=== PATIENT | male | born 2000 | race Caucasian/White ===

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

== ENCOUNTER 2022-12-19 17:30 | Emergency (ER) | payer SELFPAY ==
[2022-12-19 17:34] VITALS: BP 125/72; PULSE 100; RESP 20; TEMP 36.6; O2SAT 100
== END 2022-12-19 18:33 | disposition left against medical advice (07) ==
LOC: ER 17:34
PROVIDERS: PCP Pediatrics
DX: Z53.21 Procedure and treatment not carried out due to patient leaving prior to being seen by health care provider (principal)

== ENCOUNTER 2023-01-04 02:03 | Emergency (ER) | payer OTHER, SELFPAY ==
[2023-01-04 02:06] VITALS: BP 106/64; PULSE 84; RESP 16; TEMP 37.3; O2SAT 96
[2023-01-04 04:09] LABS: Abs Immature Grans 0.08 10^3/uL (0.0-0.06); Absolute Basophil Count 0.14 10^3/uL (0.0-0.2); Absolute Eosinophil Count 0.19 10^3/uL (0.0-0.7); Absolute Lymphocyte Count 3.18 10^3/uL (1.2-3.4); Absolute Monocyte Count 0.72 10^3/uL (0.1-0.8); Absolute Neutrophil Count 5.46 10^3/uL (1.2-6.7); Basophils % 1.4; Eosinophils % 1.9; HCT 49.6 % (40.0-50.0); HGB 17.5 g/dL (13.5-17.5); Immature Grans % 0.8; Lymphocytes % 32.5; MCH 31.5 pg (27.0-33.0); MCHC 35.3 % (32.0-36.0); MCV 89 fL (80-95); MPV 9.1 fL (8.0-11.0); Monocytes % 7.4; Platelet Count 374 10^3/uL (130-400); RBC 5.55 10^6/uL (4.36-5.78); RDW 11.9 % (11.8-14.1); RDW-SD 38.8 fL; WBC 9.77 10^3/uL (4.4-10.8)
--- NOTE | 2023-01-04 04:16 | ED.GENADUL_ITS ---
Discharge Plan Discharge Details Chief Complaint: PsychEval Primary Care Provider: Paramjit Pfeiffer ED Provider: Alley Farnsworth Home Meds and New Rx's Prescriptions: No Action lisdexamfetamine [Vyvanse] 30 mg capsule 30 mg PO QAM MDD 30 mg Qty: 30 0RF Medical Decision Making 22yo M presents voluntarily with suicidal ideation. History from patient and parents at bedside. SI with plan to cut his wrists, has cut himself shallowly with a knife. No prior suicide attempts. Heavy drinking today, not a daily drinker, no hx of ETOH withdrawal. Vital signs reassuring on arrival, on exam he has shallow abrasions to his forearm. Affect flat, keeps eyes closed during exam, speech soft. Screening labs as below, CBC & CMP with no actionable abnormalities, serum ethanol 192. Will allow time to metabolize ETOH, plan for evaluation by MH when sober. May benefit from inpatient treatment vs outpatient services. Signed out to oncoming physician, disposition pending MH eval. Lab Data Lab results reviewed: Yes I reviewed the patient's lab results. Labs: Laboratory Tests Range/Units 01/04/23 03:48 WBC (4.4-10.8) 10^3/uL 9.77 RBC (4.36-5.78) 10^6/uL 5.55 Hgb (13.5-17.5) g/dL 17.5 Hct (40.0-50.0) % 49.6 MCV (80-95) fL 89 MCH (27.0-33.0) pg 31.5 MCHC (32.0-36.0) % 35.3 RDW (11.8-14.1) % 11.9 Plt Count (130-400) 10^3/uL 374 MPV (8.0-11.0) fL 9.1 Immature Gran % 0.8 Neutrophils % 56.0 Lymphocytes % 32.5 Monocytes % 7.4 Eosinophils % 1.9 Basophils % 1.4 Nucleated RBC % (0.0-0.3) % 0.0 Absolute Neutrophils (1.2-6.7) 10^3/uL 5.46 Absolute Lymphocytes (1.2-3.4) 10^3/uL 3.18 Absolute Monocytes (0.1-0.8) 10^3/uL 0.72 Absolute Eosinophils (0.0-0.7) 10^3/uL 0.19 Absolute Basophils (0.0-0.2) 10^3/uL 0.14 Sodium (136-145) mmol/L 139 Potassium (3.5-5.1) mmol/L 3.9 Chloride (98-107) mmol/L 105 Carbon Dioxide (21.0-32.0) mmol/L 26.8 Anion Gap (3-11) mmol/L 7.2 BUN (7-18) mg/dL 6 L Creatinine (0.70-1.30) mg/dL 1.1 Est GFR (CKD-EPI 2020) (mL/min/1.73m2) 97.95 Glucose (74-106) mg/dL 104 Calcium (8.5-10.1) mg/dL 9.2 Magnesium (1.8-2.4) mg/dL 2.3 Total Bilirubin (0.2-1.0) mg/dL 0.3 AST (15-37) U/L 50 H ALT (16-63) U/L 87 H Alkaline Phosphatase (46-116) U/L 64 Total Protein (6.4-8.2) g/dL 7.9 Albumin (3.4-5.0) g/dL 4.4 Urine Opiates Screen (Negative) Negative Urine Methadone Screen (Negative) Negative Ur Barbiturates Screen (Negative) Negative Ur Tricyclics Screen (Negative) Negative Ur Amphetamines Screen (Negative) Positive A U Benzodiazepines Scrn (Negative) Negative Urine Cocaine Screen (Negative) Negative Ur THC Screen (Negative) Negative Ethyl Alcohol (<10) mg/dL 191.9 H HPI General Mode of arrival: ambulatory . Date/Time Provider Initiated Documentation: 01/04/23 02:04 . Limitations to Documentation: no limitations . Information obtained by: patient and family . HPI Narrative: 22yo M presents with suicidal ideation. History from patient and parents at bedside. He has been having worsening thoughts of hurting himself over the past several weeks. Has thought about cutting his wrists. Has cut himself shallowly with a knife. No prior suicide attempts. Today drank heavily, feeling much worse in generally. Not a daily drinker, no history of alcohol withdrawal. No HI/AH/VH. No physical compliants. He is otherwise in his usual state of health. Related Data Home Medications Medication Instructions Recorded Confirmed lisdexamfetamine 30 mg capsule 30 mg PO QAM #30 caps 01/03/23 01/04/23 (Vyvanse) Previous Rx's Medication Instructions Recorded lisdexamfetamine 30 mg capsule 30 mg PO QAM #30 caps 01/03/23 (Vyvanse) Allergies Allergy/AdvReac Type Severity Reaction Status Date / Time No Known Allergies Allergy Verified 01/04/23 02:13 General Stated Complaint: PsychEval TORRES: 2 Review of Systems Narrative: see HPI PFSH All Active Problems (Updated 06/01/22 @ 06:34 by Paramjit Pfeiffer MD) Well adult on routine health check (Acute) Laceration (Acute) Medical History (Updated 06/01/22 @ 06:34 by Paramjit Pfeiffer MD) Asthma Vision problem WEARS CONTACTS Family History Mother Healthy adult Mental disorder DEPRESSION Father Healthy adult Other Diabetes MGF Alcohol abuse paternal/maternal sides Essential hypertension MGF, MGM Personal history of malignant neoplasm paternal side Heart disease PGF, PGM Hyperlipidemia MGF Hypothyroid MGM Mental disorder maternal/paternal sides with depression Stroke PGF Parkinson disease maternal side Social History Smoking/Tobacco Use Status: Current-Occasional Tobacco Type: e-cigarettes Smoking risk assessment performed?: Yes Alcohol Intake: current Alcohol Intake frequency: a few times a month Alcohol type: hard liquor Drug use: Occasionally Substance use type: marijuana Housing: apartment Do you feel safe at home: Yes Do you feel safe in your relationship?: Yes Exam Narrative Exam Narrative: General: Alert, well appearing Head: Normocephalic, atraumatic Neck: Trachea midline, Neck supple. Cardiac: No cyanosis. Resp: No respiratory distress. Speaking in full sentences. Abd: Non-distended Extremities: No deformities. No peripheral edema. Shallow abrasions to forearms Neurologic: GCS 15. Moves all extremities freely against gravity Psych: Calm, cooperative. Well groomed. Mood sad, affect flat. Keeps eyes closed during interview. Speech with soft and slow, flat. Linear. SI, plan to cut wrists. Denies HI/AH/VH. Does not appear to be responding to internal stimuli. Course Vital Signs Vital signs: Vital Signs Temperature 37.3 C 01/04/23 02:06 Pulse 84 01/04/23 02:06 Respiratory Rate 16 01/04/23 02:06 Blood Pressure 106/64 01/04/23 02:06 Pulse Oximetry 96 01/04/23 02:06 Temperature 37.3 C 01/04/23 02:06 Temperature Source Temporal Artery Scan 01/04/23 02:06 Pulse 84 01/04/23 02:06 Respiratory Rate 16 01/04/23 02:06 Respiratory Effort Normal, Non-Labored 01/04/23 02:10 Blood Pressure 106/64 01/04/23 02:06 Blood Pressure Position Sitting 01/04/23 02:06 Pulse Oximetry 96 01/04/23 02:06 Oxygen Delivery Method Room Air 01/04/23 02:06 Oxygen Flow Rate 0 01/04/23 02:06 Pain Level 0 01/04/23 02:06 PAWSS Have you Been Recently Intoxicated or Drunk Within the Last 30 days?: Yes Have you Ever Experienced Previous Episodes of Alcohol Withdrawal?: No Have you ever Experienced Withdrawal Seizures?: No Have you ever Experienced Delirium Tremens(DT)s?: No Have you ever undergone Alcohol Rehabilitation Treatment (i.e, inpt ot outpatient treatment programs)?: No Have you ever Experienced Blackouts?: Yes Have you ever Combined Alcohol with other Downers within the last 90 days?: No Have you ever Combined Alcohol with any other Substance of Abuse during the last 90 days?: No Positive Blood Alcohol level on Presentation? [PCS.BAL]: Yes Evidence of Increased Autonomic Activity (i.e. HR>120, tremor, sweating, agitation, nausea)?: No Result: 3
[2023-01-04 04:28] LABS: ALT 87 U/L (16-63); AST 50 U/L (15-37); Albumin 4.4 g/dL (3.4-5.0); Alkaline Phosphatase 64 U/L (46-116); Anion Gap 7.2 mmol/L (3-11); BUN 6 mg/dL (7-18); Bilirubin, Total 0.3 mg/dL (0.2-1.0); CO2 26.8 mmol/L (21.0-32.0); CREATININE 1.1 mg/dL (0.70-1.30); Calcium 9.2 mg/dL (8.5-10.1); Chloride 105 mmol/L (98-107); ETHANOL BLOOD 191.9 mg/dL (<10); Estimated GFR 97.95 (mL/min/1.73m2); Glucose 104 mg/dL (74-106); Magnesium 2.3 mg/dL (1.8-2.4); Potassium 3.9 mmol/L (3.5-5.1); Sodium 139 mmol/L (136-145); Total Protein 7.9 g/dL (6.4-8.2)
--- NOTE | 2023-01-04 04:49 | NUR.NOTE ---
Nursing Note: Pt lives at an apartment on his own, over the past few months he has been dealing with depression, feeling of hopelessness and SI. pt has hx of cutting his arms, superficial cuts to his left fore arm. Pt called his mother in the past with SI and stating he needs to get help. Currently he has not been able to get into see a psychologist or get therapy. The mother had stated that she had tried through her job but has been told that the pt needs to amke the call on his own. tonberenice he comes in after calling his mother after having large amount of ETOH and stated i need help currently the pt has no active SI, but states that he has in the past few weeks. Pt agreed for mental health evaluation. changed into paper scrubs 1:1 observer, parents currently with the pt. Labs and urine sample sent, pt has been updated on POC and time line
[2023-01-04 05:31] LABS: *AMPHETAMINES SCREEN URINE Positive (Negative); *BARBITURATES SCREEN URINE Negative (Negative); *BENZODIAZEPINES SCREEN URINE Negative (Negative); Cannabinoids THC Negative (Negative); Cocaine Screen,Urine Negative (Negative); METHADONE URINE SCREEN Negative (Negative); OPIATES URINE SCREEN Negative (Negative)
[2023-01-04 05:38] LABS: Tricyclic Antidepressants Negative (Negative)
[2023-01-04 08:10] VITALS: BP 106/57; PULSE 84; RESP 18; TEMP 36.5; O2SAT 96
--- NOTE | 2023-01-04 09:08 | W.EDPROG ---
Date of service: 01/04/23 Time of Service: 08:15 Medical Decision Making Patient signed out to me pending clearance from alcohol intoxication and mental health evaluation for suicidal ideations. Patient in room with parents resting well with patient safety observer in place. 0900-spoke with [facility] who evaluated patient and recommended safety plan due to patient being forward thinking, no outpatient current therapy. Patient was reassessed by myself and did state that he would prefer outpatient therapy and at this time does not want to be admitted. There is not enough to either patient nor do I feel this is necessary given that patient is calm cooperative and mother at bedside who is also agreeable and okay with plan and patient is reaching out for help. Patient was encouraged to return for any new or significant worsening of symptoms or if he does not feel that he can remain safe on an outpatient basis. Mother did bring up that patient does seem to have these episodes more when he is anxious. We did discuss some none medication options but I did give a limited prescription for hydroxyzine to see if this helps. After discussion of diagnosis and plan of care patient has no further needs, questions, or concerns and states clear understanding to return to the emergency department for any worsening symptoms. This documentation was generated using [employer] dictation system, please disregard any oddities of phrase or misspellings. Lab Data Lab results reviewed: Yes I reviewed the patient's lab results. Exam Const General: cooperative, no acute distress and not ill appearing Orientation: alert, awake and oriented x3 Resp Effort & Inspection: normal respiratory effort, able to speak in complete sentences and no respiratory distress Neuro General: patient alert, patient awake, patient oriented x3 and moves all extremities Sign Out Sign Out Data: Sign Out Comment: 22yo M, SI with plan to cut wrists, presents voluntarily, intoxicated. Pending sober re-eval, evaluation. Last updated by Alley Farnsworth MD at 01/04/23 07:13 Discharge Plan Disposition Patient Disposition: Home Discharge Details Clinical Impression: Laceration, Suicidal ideation, Alcohol intoxication, Anxiety and depression Primary Care Provider: Paramjit Pfeiffer ED Provider: Dann Samaniego Home Meds and New Rx's Prescriptions: New hydroxyzine HCl 25 mg tablet 25 mg PO TID PRN (Reason: anxiety) Qty: 15 0RF Continued lisdexamfetamine [Vyvanse] 30 mg capsule 30 mg PO QAM MDD 30 mg Qty: 30 0RF Discharge Instructions Instructions: Depression (ED), Help Prevent Suicide (ED) Additional Instructions: Please return immediately to the emergency department for any new or significant worsening of your symptoms. Otherwise follow-up as discussed for establishment of outpatient mental health services. Referrals: [facility] [Outside] (As discussed on your safety plan) Paramjit Pfeiffer MD [Primary Care Provider] - Discharge Data Discharge Date/Time-TO BE ENTERED AT DEPARTURE: 01/04/23 09:44
[2023-01-04 09:40] VITALS: BP 115/67; PULSE 76; RESP 18; TEMP 36.7; O2SAT 96
--- NOTE | 2023-01-06 14:24 | NUR.NOTE ---
accessed pt chart to obtain phone number for [facility]
== END 2023-01-04 09:44 | disposition home or self-care (01) ==
PROVIDERS: Student in an Organized Health Care Education/Training Program; Emergency Provider Nurse Practitioner Family; PCP Pediatrics
DX: F10.929 Alcohol use, unspecified with intoxication, unspecified (principal); F41.9 Anxiety disorder, unspecified; F32.A Depression, unspecified; R45.851 Suicidal ideations
CPT/HCPCS: 00123; 80053; 80307; 99285; 80320; 83735; 85025

== ENCOUNTER 2023-02-21 23:23 | Outpatient (REF) | payer OTHER, SELFPAY | END 2023-02-21 23:24 | disposition home or self-care (01) | LOC: LBN 23:23 | PROVIDERS: PCP Pediatrics; Visit Provider Physician Assistant Medical | DX: J02.9 Acute pharyngitis, unspecified (principal) | CPT/HCPCS: 87070 ==

== ENCOUNTER 2023-12-20 09:28 | Emergency (ER) | payer OTHER, SELFPAY ==
[2023-12-20 09:35] VITALS: BP 119/65; PULSE 91; RESP 18; TEMP 36.6; O2SAT 98
--- NOTE | 2023-12-20 10:00 | DI.RAD_ITS ---
Exam(s) XR WRIST LT COMPLETE EXAM: XR WRIST LT COMPLETE CLINICAL HISTORY: Injury. TECHNIQUE: 2D digital imaging was performed of the left wrist. Three images were obtained. PA, obl ique and lateral views were obtained. COMPARISON: No exams were available for comparison FINDINGS: BONES: No acute fracture is present. No bony destructive lesion is seen. JOINTS: The carpal bones are normally aligned. SOFT TISSUE: Normal. IMPRESSION: Unremarkable radiographs of the left wrist. DATA REPOSITORY: RADIATION DOSE DELIVERED:
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
--- NOTE | 2023-12-20 11:05 | DI.VRAD_ITS ---
PROCEDURE INFORMATION: Exam: XR Left Wrist Exam date and time: 12/20/2023 10:54 AM Age: 23 years old Clinical indication: Pain; Wrist; Left TECHNIQUE: Imaging protocol: Radiologic exam of the left wrist. Views: 3 or more views. COMPARISON: No relevant prior studies available. FINDINGS: Bones/joints: No acute fracture or dislocation. Joint spaces maintained. Soft tissues: Unremarkable. IMPRESSION: No acute findings. Dictated and Authenticated by: Wiliam Boyd MD. Ordering:MARIE Hutchinson MD
[2023-12-20] MEDS: Ibuprofen 800 MG TAB PO (11:09)
[2023-12-20] MEDS: Lidocaine 5% Patch 1 PATCH TP (11:09)
[2023-12-20] MEDS: LORazepam 0.5 MG TAB PO (13:27)
[2023-12-20 13:36] LABS: Bilirubin Negative (Negative); Blood Negative (Negative); Clarity Clear (Clear); Glucose Negative (Negative); Ketones Negative (Negative); Leukocyte Esterase Negative (Negative); Nitrite Negative (Negative); Specific Gravity 1.025 (1.005-1.025); Urobilinogen 0.2 mg/dL (Up to 0.2)
[2023-12-20 13:50] LABS: *AMPHETAMINES SCREEN URINE Negative (Negative); *BARBITURATES SCREEN URINE Negative (Negative); *BENZODIAZEPINES SCREEN URINE Negative (Negative); Cannabinoids THC Negative (Negative); Cocaine Screen,Urine Negative (Negative); METHADONE URINE SCREEN Negative (Negative); OPIATES URINE SCREEN Negative (Negative)
[2023-12-20 13:51] LABS: Tricyclic Antidepressants Negative (Negative)
[2023-12-20] MEDS: Nicotine 14 MG/24 HR PATCH TD (14:15)
--- NOTE | 2023-12-20 16:31 | W.ED.FU ---
Follow Up Plan: Handoff report received from Evangelina Guzmán, chandan ARIADNE. Please see her note for full HPI, review of systems, and physical exam. Kartik was medically cleared by [facility] clearance. I did speak with mental health crisis shop manager Hubert, patient is voluntarily agreeable to inpatient placement. Referrals are being made at this time. Kartik is resting comfortably in zone B room 4, mother at bedside. He is alert and oriented, in no acute distress. Easy work of breathing, able to speak in complete sentences. Normal affect. He denies anxiety at this time, says that he occasionally gets craving for vaping but has nicotine patch in place. I did advise him that he can use lozenges as needed. He is requesting medication to help him sleep, says that he is agreeable to trying hydroxyzine. Report given doc-to-doc to JESSEE Nice at [facility]. Pt will be accepted; pending bed assignment.
--- NOTE | 2023-12-20 17:27 | CMSP_ITS ---
Date of service: 12/20/23 Time of Service: 17:27 Care Management Safety Plan Status Status: Voluntary Reason for Wait Reason for Wait: Inpatient Admission Safety Plan Safety Plan: VOLUNTARY FOR INPATIENT PSYCHIATRIC STABILIZATION.? Patient is appropriate in all interactions since arriving at [facility]; Pt has demonstrated appropriate coping and communication skills, has articulated his or her needs and concerns and is fully engaged during staff interactions. CM spoke with RN and [facility]; Kartik is voluntarily seeking inpatient admission. His mother, Alessia is a good support and may visit; other family visitors at patient and RN discretion. Safety plan has been established with patient, and care team, to adhere to patient goals, identify restrictions based on behavioral status, address nutrition, and determine allowed personal belongings, tools for hygiene and personal care. Determine level of activity including ambulation, level of supervision, visitors, and determine privileges based on behaviors and level of engagement by pt. VOLUNTARY SAFETY PLAN: 1. Will remain on suicide precautions, in paper clothes 2. Will remain in Zone B under direct supervision of one-on-one staff at all times provided by [facility]; TANO, CHAMBER WORKER photoresist printer. 3. May have paper cups, plates, finger foods as well as a cardboard spoon with which to eat meals. 4. Follow [facility] Management of the Admitted Behavioral Health Patient policy. 5. Shower available in Zone B without restriction. 6. Personal belongings-soft items permitted at RN discretion. 7. Visitors- mother may visit, at RN discretion. 8. Activities: soft cart items approved per RN discretion. 9.? Bathroom available in Zone B without restriction. 10. Phone: incoming/outgoing calls, limited to [facility] cordless phone at RN discretion. Due to VOLUNTARY status, if patient wishes to leave [facility], staff will contact [facility] Crisis Screener ([phone]) and Credit Review Manager ([phone]) as soon as possible. In the event of elopement, notify [place] [employer] Police ([phone]). Patient is currently voluntarily at [facility] and seeking inpatient admission when a bed becomes available. [facility] Frontline Software Engineer Kernel will continue seeking placement. Please contact the Credit Review Manager ([phone]) and [facility] Software Engineer Kernel ([phone]) for any needed changes in the Safety Plan. Safety plan has been provided to interdepartmental care team.
--- NOTE | 2023-12-20 17:27 | PDOC.CMSAFE ---
Date of service: 12/20/23 Time of Service: 17:27 Care Management Safety Plan Status Status: Voluntary Reason for Wait Reason for Wait: Inpatient Admission Safety Plan Safety Plan: VOLUNTARY FOR INPATIENT PSYCHIATRIC STABILIZATION.? Patient is appropriate in all interactions since arriving at [facility]; Pt has demonstrated appropriate coping and communication skills, has articulated his or her needs and concerns and is fully engaged during staff interactions. CM spoke with RN and [facility]; Kartik is voluntarily seeking inpatient admission. His mother, Alessia is a good support and may visit; other family visitors at patient and RN discretion. Safety plan has been established with patient, and care team, to adhere to patient goals, identify restrictions based on behavioral status, address nutrition, and determine allowed personal belongings, tools for hygiene and personal care. Determine level of activity including ambulation, level of supervision, visitors, and determine privileges based on behaviors and level of engagement by pt. VOLUNTARY SAFETY PLAN: 1. Will remain on suicide precautions, in paper clothes 2. Will remain in Zone B under direct supervision of one-on-one staff at all times provided by [employer]; TANO, METAL CASKET ASSEMBLER flower machine operator. 3. May have paper cups, plates, finger foods as well as a cardboard spoon with which to eat meals. 4. Follow [facility] Management of the Admitted Behavioral Health Patient policy. 5. Shower available in Zone B without restriction. 6. Personal belongings-soft items permitted at RN discretion. 7. Visitors- mother may visit, at RN discretion. 8. Activities: soft cart items approved per RN discretion. 9.? Bathroom available in Zone B without restriction. 10. Phone: incoming/outgoing calls, limited to [facility] cordless phone at RN discretion. Due to VOLUNTARY status, if patient wishes to leave [facility], staff will contact [facility] Crisis Screener ([phone]) and Wood Piler ([phone]) as soon as possible. In the event of elopement, notify [place] [employer] Police ([phone]). Patient is currently voluntarily at [facility] and seeking inpatient admission when a bed becomes available. [facility] Frontline Geopolitics Teacher will continue seeking placement. Please contact the Wood Piler ([phone]) and [facility] Geopolitics Teacher ([phone]) for any needed changes in the Safety Plan. Safety plan has been provided to interdepartmental care team.
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
[2023-12-20] MEDS: hydrOXYzine HCL 25 MG TAB PO (19:28)
--- NOTE | 2023-12-20 22:25 | NUR.NOTE ---
Nursing Note: Spoke with Stacey at [facility]. Patient is accepted. Nurse to nurse completed. Doc to doc completed. will need to arrange transport for AM. Pt remains voluntary.
--- NOTE | 2023-12-21 07:01 | W.EDPROG ---
Date of service: 12/21/23 Time of Service: 07:01 Medical Decision Making I received signout on this 23-year-old patient in the emergency department voluntarily in the setting of suicidal ideation. Patient has been accepted at the [facility] [place] and is pending a bed assignment. No active behavioral issues last shift. Will update documentation as clinically warranted. 9:10 AM I spoke to Fransico Eaton NP, from [facility] [place] who agreed to accept the patient. He reported that the bed was ready. Will work on transportation. 10:40 AM I signed transfer paperwork for this patient to go via Ambulance. He will leave at approximately 11 AM. Will update documentation if there are any significant delays. Quality:[facility] Health Related Social Needs: No Data to Display Sign Out Sign Out Data: Sign Out Comment: 23 yr old, Suicidal ideations worse over 3 weeks. No specific plan. Also c/o Anxiety. Given 0.5mg Lorazepam, nicotine patch, and ibuprofen. Being Evaluated by [facility] currently. Last updated by Evangelina Guzmán NP at 12/20/23 15:28 Discharge Plan Disposition Patient Disposition: Psychiatric Hospital/Unit Specific Psychiatric Facility: [facility] [place] Discharge Details Clinical Impression: Depression with suicidal ideation Primary Care Provider: Unknown,Unknown ED Provider: Maldonado Frederick Home Meds and New Rx's Prescriptions: Continued bupropion HCl [Wellbutrin XL] 150 mg tablet extended release 24 hr 150 mg PO QAM Qty: 30 1RF methylphenidate HCl [Concerta] 36 mg tablet extended release 24hr 36 mg PO DAILY Discharge Data Discharge Date/Time-TO BE ENTERED AT DEPARTURE: 12/21/23 10:58
[2023-12-21 07:37] VITALS: BP 119/74; PULSE 66; RESP 16; TEMP 35; O2SAT 98
[2023-12-21] MEDS: buPROPion-XL 150 MG TABCR PO (09:59)
== END 2023-12-21 10:58 ==
PROVIDERS: Registered Nurse Emergency; Emergency Provider Emergency Medicine
DX: R45.851 Suicidal ideations (principal); F32.A Depression, unspecified; F41.9 Anxiety disorder, unspecified; F17.290 Nicotine dependence, other tobacco product, uncomplicated
CPT/HCPCS: 00123; 80307; 96127; 99285; 73110; 81003

== ENCOUNTER 2024-07-14 15:29 | Emergency (ER) | payer OTHER, SELFPAY ==
[2024-07-14] VITALS (19 sets, daily range): BP systolic 120–139; BP diastolic 63–87; PULSE 79–95; RESP 9–21; TEMP 36.1; O2SAT 96–100
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
[2024-07-14] MEDS: Normal Saline 1,000 ML 1000 ML IV (15:45)
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
[2024-07-14 15:54] LABS: Abs Immature Grans 0.05 10^3/uL (0.0-0.06); Absolute Basophil Count 0.13 10^3/uL (0.0-0.2); Absolute Eosinophil Count 0.16 10^3/uL (0.0-0.7); Absolute Lymphocyte Count 2.59 10^3/uL (1.2-3.4); Absolute Monocyte Count 1.08 10^3/uL (0.1-0.8); Absolute Neutrophil Count 4.81 10^3/uL (1.2-6.7); Basophils % 1.5 %; Eosinophils % 1.8 %; HCT 47.2 % (40.0-50.0); HGB 16.5 g/dL (13.5-17.5); Immature Grans % 0.6 %; Lymphocytes % 29.4 %; MCV 92 fL (80-95); MPV 9.2 fL (8.0-11.0); Monocytes % 12.2 %; Neutrophils % 54.5 %; Platelet Count 344 10^3/uL (130-400); RBC 5.16 10^6/uL (4.36-5.78); RDW 11.6 % (11.8-14.1); RDW-SD 39.1 fL; WBC 8.82 10^3/uL (4.4-10.8)
[2024-07-14 16:07] LABS: ETHANOL BLOOD < 3.0 mg/dL (<10)
[2024-07-14 16:10] LABS: ALT 72 U/L (16-63); AST 38 U/L (15-37); Albumin 4.5 g/dL (3.4-5.0); Alkaline Phosphatase 84 U/L (46-116); Anion Gap 7.8 mmol/L (3-11); BUN 14 mg/dL (7-18); Bilirubin, Total 0.8 mg/dL (0.2-1.0); CO2 28.2 mmol/L (21.0-32.0); CREATININE 1.3 mg/dL (0.70-1.30); Calcium 9.3 mg/dL (8.5-10.1); Chloride 101 mmol/L (98-107); Estimated GFR 79.66 (mL/min/1.73m2); Glucose 110 mg/dL (74-106); Potassium 3.9 mmol/L (3.5-5.1); Sodium 137 mmol/L (136-145); Total Protein 7.9 g/dL (6.4-8.2)
[2024-07-14] MEDS: Omnipaque 350 MG/ML 100 ML BTL IJ (16:25)
[2024-07-14] MEDS: Normal Saline - Diluent 50 ML VIAL IJ (16:26)
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
[2024-07-14 17:13] LABS: Bilirubin Negative (Negative); Blood Negative (Negative); Clarity Clear (Clear); Glucose Negative (Negative); Ketones Negative (Negative); Leukocyte Esterase Negative (Negative); Nitrite Negative (Negative); Urobilinogen 0.2 mg/dL (Up to 0.2); pH 7.5 (5-8)
[2024-07-14 17:25] LABS: *AMPHETAMINES SCREEN URINE Negative (Negative); *BARBITURATES SCREEN URINE Negative (Negative); *BENZODIAZEPINES SCREEN URINE Negative (Negative); Cannabinoids THC Negative (Negative); Cocaine Screen,Urine Negative (Negative); METHADONE URINE SCREEN Negative (Negative); OPIATES URINE SCREEN Negative (Negative)
[2024-07-14 17:28] LABS: Tricyclic Antidepressants Negative (Negative)
[2024-07-14] MEDS: Ketorolac 15 MG/ML VIAL IVP (17:36)
[2024-07-14] MEDS: Diph,Pertuss(Acell),Tet Vac/Pf 0.5 ML SYR IM (17:37)
== END 2024-07-14 18:06 | disposition home or self-care (01) ==
PROVIDERS: Emergency Provider Emergency Medicine
DX: S80.811A Abrasion, right lower leg, initial encounter; S80.812A Abrasion, left lower leg, initial encounter; V29.498A Other motorcycle driver injured in collision with other motor vehicles in traffic accident, initial encounter; Z23 Encounter for immunization
CPT/HCPCS: 99284; 99285; 96374; 90471; 73562; 74177; 80053; 80307; 90715; 96361; 70450; 71260; 72125; 73610; 73630; 80320; 81003; 85025; J1885; J3490